=== PATIENT | female | born 1985 | race Caucasian/White ===

== ENCOUNTER → 2019-01-20 | Outpatient (CLI) | payer BC ==
--- NOTE | 2019-01-20 09:52 | RAD ---
EXAM: CT Abdomen and Pelvis without IV contrast CLINICAL HISTORY: Left lower quadrant pain, left flank pain, hematuria, urinary frequency COMPARISON: none TECHNIQUE: Helical CT of the abdomen and pelvis without intravenous contrast. Axial, coronal and sagittal reformatted images were generated. PQRS compliance statement - One or more of the following individualized dose reduction techniques were utilized for this study: 1. Automated exposure control 2. Adjustment of the mA and/or kV according to patient size 3. Use of iterative reconstruction technique FINDINGS: Lack of intravenous contrast limits evaluation of solid organs, vasculature, and lymph nodes. Lower chest: Lung bases are clear. There is nodularity of the right breast. Abdomen and Pelvis: No focal liver lesion. Gallbladder is normal. No biliary ductal dilatation. Spleen is unremarkable. Adrenal glands and pancreas are unremarkable. Punctate right lower pole nonobstructing renal calculus. No definite ureteral or bladder calculi are seen. No focal renal lesion. No hydronephrosis or hydroureter. Bilateral extrarenal pelvis. Appendix is normal. No small or large bowel dilatation. Moderate colonic stool content. No abdominal or pelvic ascites. No abdominal or pelvic lymphadenopathy. Uterus is unremarkable. Bones: Osseous structures are grossly unremarkable. IMPRESSION: 1. Punctate nonobstructing right lower pole renal calculus. No left renal, ureteral or bladder calculus. 2. No hydronephrosis or hydroureter. 3. Moderate colonic stool content is seen. This can be correlated with possible constipation. 4. Right breast nodularity can be correlated with physical exam and mammographic/sonographic evaluation. Electronically signed by: Jorge Chaudhari MD (01/20/2019 9:49 AM) [facility]
== END | disposition home or self-care (01) ==
LOC: CT 09:17
PROVIDERS: ATTEND Physician Assistant
DX: N20.0 Calculus of kidney (principal)
CPT/HCPCS: 74176

== ENCOUNTER → 2019-02-04 | Outpatient (CLI) | payer BC ==
--- NOTE | 2019-02-04 14:32 | RAD ---
Indication: Right breast nodularity seen on CT abdomen and pelvis Technique: 2-D and 3-D diagnostic right breast mammogram. CAD was utilized. Comparison: None Findings: Breast density category D: The breasts are extremely dense which limits sensitivity of mammography. The skin and nipple are within normal limits. No suspicious calcifications, spiculated mass or area of architectural distortion. Impression: No mammographic evidence of malignancy. BI-RADS 2: Benign findings.
== END | disposition home or self-care (01) ==
LOC: MAMMO 13:54
PROVIDERS: ATTEND Physician Assistant
DX: N63.10 Unspecified lump in the right breast, unspecified quadrant (principal)
CPT/HCPCS: 77065; G0279; 77061